=== PATIENT | female | born 1970 | race Caucasian/White ===

== ENCOUNTER 2016-06-14 00:26 | Emergency (ER) | payer SELFPAY ==
[~2016-06-14 00:26] MED LIST: GLU500 PO
[2016-06-14 03:12] LABS: UA SPECIFIC GRAVITY 1.025 (1.005-1.035); microscopic required? YES; urine erythrocyte NEGATIVE (NEGATIVE)
[2016-06-14 03:50] VITALS: BP 112/75
== END 2016-06-14 03:50 | disposition home or self-care (01) ==
LOC: ED 00:26
PROVIDERS: Emergency Medicine
DX: M54.41 Lumbago with sciatica, right side (principal); N39.0 Urinary tract infection, site not specified; E11.9 Type 2 diabetes mellitus without complications; Z79.84 Long term (current) use of oral hypoglycemic drugs
CPT/HCPCS: J1885

== ENCOUNTER 2016-09-01 15:37 | Emergency (ER) | payer SELFPAY ==
[2016-09-01 17:55] VITALS: BP 115/73
== END 2016-09-01 17:53 | disposition home or self-care (01) ==
LOC: ED 15:37
DX: M70.862 Other soft tissue disorders related to use, overuse and pressure, left lower leg (principal); M79.1 Myalgia; E11.9 Type 2 diabetes mellitus without complications; Z79.84 Long term (current) use of oral hypoglycemic drugs; Y93.89 Activity, other specified

== ENCOUNTER 2016-11-17 08:47 | Emergency (ER) | payer SELFPAY ==
[2016-11-17 11:41] VITALS: BP 102/69
== END 2016-11-17 11:41 | disposition home or self-care (01) ==
LOC: ED 08:47
DX: S05.02XA Injury of conjunctiva and corneal abrasion without foreign body, left eye, initial encounter (principal); E11.9 Type 2 diabetes mellitus without complications; X58.XXXA Exposure to other specified factors, initial encounter; Y93.89 Activity, other specified; Y99.8 Other external cause status; Y92.89 Other specified places as the place of occurrence of the external cause

== ENCOUNTER 2018-09-07 12:15 | Emergency (ER) | payer OTHER ==
[~2018-09-07] VITALS: Ht 167.6 cm; Wt 62.8 kg
[2018-09-07 12:18] VITALS: Ht 167.6 cm; Wt 62.8 kg
[2018-09-07 12:49] LABS: BASOPHIL % 0.5 % (0-2); PLATELET COUNT 303 x10^3mcL (130-400); RED CELL DISTRIBUTION WIDTH 12.7 % (11.5-14.5)
[2018-09-07 13:02] LABS: CALCIUM 9.3 mg/dL (8.5-10.1); CARBON DIOXIDE 27.6 mmol/L (21-32); CHLORIDE SERUM 103 mmol/L (98-107); CREATININE SERUM 0.7 mg/dL (0.6-1.0); GFR1 > 60 mL/min; GLUCOSE SERUM 284 mg/dL (74-106); POTASSIUM SERUM 4.1 mmol/L (3.5-5.1); SODIUM SERUM 139 mmol/L (136-145)
[2018-09-07 13:07] LABS: ALKALINE PHOSPHATASE 65 U/L (46-116); ALT/SGPT 16 U/L (14-59); AST/SGOT 7 U/L (15-37); BILIRUBIN TOTAL 0.32 mg/dL (0.20-1.00); LIPASE 163 IU/L (73-393); TOTAL PROTEIN, SERUM 6.8 g/dL (6.4-8.2)
[2018-09-07 13:10] LABS: ALBUMIN 3.2 g/dL (3.4-5.0)
[2018-09-07 14:57] VITALS: BP 95/56
== END 2018-09-07 14:57 | disposition home or self-care (01) ==
LOC: ED 12:15
DX: K29.70 Gastritis, unspecified, without bleeding (principal); N39.0 Urinary tract infection, site not specified; E11.40 Type 2 diabetes mellitus with diabetic neuropathy, unspecified; Z90.49 Acquired absence of other specified parts of digestive tract
CPT/HCPCS: 36415

== ENCOUNTER 2018-10-28 18:12 | Emergency (ER) | payer OTHER ==
[~2018-10-28] VITALS: Ht 167.6 cm; Wt 63.6 kg
[2018-10-28 18:53] VITALS: Ht 167.6 cm; Wt 63.6 kg
[2018-10-28 19:24] VITALS: BP 86/54
== END 2018-10-28 19:24 | disposition home or self-care (01) ==
LOC: ED 18:12
DX: K59.00 Constipation, unspecified (principal); E11.9 Type 2 diabetes mellitus without complications

== ENCOUNTER 2018-10-29 12:31 | Emergency (ER) | payer OTHER ==
[~2018-10-29] VITALS: Ht 167.6 cm; Wt 63.0 kg
[2018-10-29 12:46] VITALS: Ht 167.6 cm; Wt 63.0 kg
[2018-10-29 14:04] LABS: BASOPHIL % 0.3 % (0-2); PLATELET COUNT 268 x10^3mcL (130-400); RED CELL DISTRIBUTION WIDTH 13.3 % (11.5-14.5)
[2018-10-29 14:07] LABS: CALCIUM 8.9 mg/dL (8.5-10.1); CARBON DIOXIDE 31.2 mmol/L (21-32); CHLORIDE SERUM 102 mmol/L (98-107); CREATININE SERUM 0.7 mg/dL (0.6-1.0); GFR1 > 60 mL/min; GLUCOSE SERUM 316 mg/dL (74-106); POTASSIUM SERUM 4.1 mmol/L (3.5-5.1); SODIUM SERUM 140 mmol/L (136-145)
[2018-10-29 14:12] LABS: ALKALINE PHOSPHATASE 69 U/L (46-116); ALT/SGPT 23 U/L (14-59); AST/SGOT 14 U/L (15-37); BILIRUBIN TOTAL 0.4 mg/dL (0.20-1.00); TOTAL PROTEIN, SERUM 6.7 g/dL (6.4-8.2)
[2018-10-29 14:14] LABS: ALBUMIN 3.1 g/dL (3.4-5.0)
[2018-10-29 16:09] VITALS: BP 115/64
== END 2018-10-29 16:09 | disposition home or self-care (01) ==
LOC: ED 12:31
DX: K59.00 Constipation, unspecified (principal); E11.9 Type 2 diabetes mellitus without complications; Z90.49 Acquired absence of other specified parts of digestive tract
CPT/HCPCS: 36415

== ENCOUNTER 2019-04-21 21:21 | Emergency (ER) | payer OTHER ==
[~2019-04-21] VITALS: Ht 167.6 cm; Wt 65.8 kg
[2019-04-21 21:55] VITALS: BP 121/76; Ht 167.6 cm; Wt 65.8 kg
== END 2019-04-21 22:41 | disposition home or self-care (01) ==
LOC: ED 21:21
DX: L03.031 Cellulitis of right toe (principal); E11.9 Type 2 diabetes mellitus without complications; Z90.49 Acquired absence of other specified parts of digestive tract

== ENCOUNTER 2019-08-20 09:13 | Emergency (ER) | payer OTHER ==
[~2019-08-20] VITALS: Ht 167.6 cm; Wt 64.9 kg
[2019-08-20 09:34] VITALS: Ht 167.6 cm; Wt 64.9 kg
[2019-08-20 09:58] LABS: BASOPHIL % 0.7 % (0-2); PLATELET COUNT 309 x10^3mcL (130-400); RED CELL DISTRIBUTION WIDTH 13.6 % (11.5-14.5)
[2019-08-20 10:13] LABS: CALCIUM 9.2 mg/dL (8.5-10.1); CARBON DIOXIDE 25.6 mmol/L (21-32); CHLORIDE SERUM 101 mmol/L (98-107); CREATININE SERUM 0.8 mg/dL (0.6-1.0); GFR1 > 60 mL/min; GLUCOSE SERUM 308 mg/dL (74-106); POTASSIUM SERUM 4.4 mmol/L (3.5-5.1); SODIUM SERUM 136 mmol/L (136-145)
[2019-08-20 10:17] LABS: ALBUMIN 3.4 g/dL (3.4-5.0); ALKALINE PHOSPHATASE 68 U/L (46-116); ALT/SGPT 22 U/L (14-59); AST/SGOT 8 U/L (15-37); BILIRUBIN TOTAL 0.39 mg/dL (0.20-1.00); LIPASE 164 IU/L (73-393)
[2019-08-20 11:02] LABS: microscopic required? YES; urine erythrocyte NEGATIVE (NEGATIVE)
[2019-08-20 11:44] VITALS: BP 105/67
== END 2019-08-20 11:44 | disposition home or self-care (01) ==
LOC: ED 09:13
PROVIDERS: Specialist
DX: N39.0 Urinary tract infection, site not specified (principal); R19.7 Diarrhea, unspecified; R10.84 Generalized abdominal pain; E11.9 Type 2 diabetes mellitus without complications; N83.209 Unspecified ovarian cyst, unspecified side; Z90.49 Acquired absence of other specified parts of digestive tract